=== PATIENT | female | born 1995 ===

== ENCOUNTER 2020-10-12 12:20 | Outpatient (CLI) | payer OTHER ==
[2020-10-12 12:45] VITALS: BP 106/61
--- NOTE | 2020-10-12 15:07 | Ultrasound Report ---
Limited OB ultrasound INDICATION: Amniotic fluid index measurement FINDINGS: There is a single intrauterine in a cephalic presentation. The amniotic fluid ind ex is 8.2 cm which is within the normal range. heart rate is 137 bpm. IMPRESSION: The amniotic fluid index is normal. BIOPHYSICAL PROFILE INDICATION: well-being COMPARISON: None FINDINGS: breathing movement: 2/2 movement: 2/2 posture and tone: 2/2 Qualitative amniotic fluid volume: 2/2 IMPRESSION: Total score for biophysical profile is 8/8 heart rate is 137 bpm Signer Name: Pastor Brito MD Signed: 10/12/2020 3:03 PM Workstation Name: [id number]
== END 2020-10-12 14:12 | disposition home or self-care (01) ==
LOC: TRG 12:20 → APU 12:21 → TRG 14:12
PROVIDERS: ATTEND Obstetrics & Gynecology
DX: O47.1 False labor at or after 37 completed weeks of gestation (principal); Z3A.39 39 weeks gestation of pregnancy
CPT/HCPCS: 59025; 76815; 76819

== ENCOUNTER 2020-10-18 17:42 | Inpatient (IN) | payer OTHER, SELFPAY ==
[2020-10-18] MEDS ORDERED: HYDROcodone/ACETAMINOPHEN 5-325 MG TAB PO ONE (22:18)
[2020-10-19] MEDS ORDERED: MINERAL OIL 30 ML ORAL LIQD PO PRN ×2 (01:34→22:00)
[2020-10-19] MEDS ORDERED: TERBUTALINE 1 MG/1 ML INJ SUB-Q PRN ×2 (01:34→08:59)
[2020-10-19] MEDS ORDERED: fentaNYL 100 MCG/2 ML INJ IV PRN (01:34)
[2020-10-19] MEDS ORDERED: LIDOCAINE (2%) 20 MG/1 ML VIAL 20 ML MDV INFILTRATI ONE (01:34)
[2020-10-19] MEDS ORDERED: ePHEDrine SULFATE 50 MG/1 ML INJ IV PRN (01:34)
[2020-10-19] MEDS ORDERED: LACTATED RINGERS 1,000 ML IV SCH ×2 (01:45→09:00)
[2020-10-19] MEDS ORDERED: OXYTOCIN DRIP 30 UNITS/500 ML BAG IV SCH ×3 (02:00→09:00)
[2020-10-19 02:11] LABS: Hematocrit 38.3 % (30.3-42.9); Hemoglobin 12.9 gm/dl (10.1-14.3); Mean Corpuscular HGB Conc 34 % (30-34); Mean Corpuscular Volume 93 fl (79-97); Platelet Count 170 K/mm3 (140-440); Red Blood Count 4.12 M/mm3 (3.65-5.03); Red Cell Distribution Width 15.2 % (13.2-15.2)
[2020-10-19] MEDS: BUTORPHANOL 2 MG/1 ML INJ IV PRN ×2 (02:40→06:12)
[2020-10-19] MEDS ORDERED: LIDOCAINE (2%) 20 MG/1 ML VIAL 20 ML MDV INFILTRATI NR (08:59)
[2020-10-19] MEDS ORDERED: NALOXONE 2 MG/2 ML INJ IV PRN (10:30)
[2020-10-19] MEDS ORDERED: fentaNYL-BUPIV 2 MCG/ML-0.125% 200 MCG/100 ML BAG EPIDURAL SCH (10:30)
[2020-10-19] MEDS ORDERED: NalbUPHINE 10 MG/1 ML INJ IV PRN (10:30)
[2020-10-19] MEDS ORDERED: ONDANSETRON 4 MG/2 ML INJ IV PRN (10:30)
[2020-10-19] MEDS ORDERED: diphenhydrAMINE 50 MG/ML VIAL IV PRN (10:30)
--- NOTE | 2020-10-19 11:00 | Anesthesia Consultation ---
Anesthesia Consult and Med Hx Date of service: 10/19/20 - Airway Anesthetic Teeth Evaluation: Good ROM Head & Neck: Adequate Mental/Hyoid Distance: Adequate Mallampati Class: Class II Intubation Access Assessment: Probably Good - Pulmonary Exam CTA: Yes - Cardiac Exam Cardiac Exam: RRR - Pre-Operative Health Status ASA Pre-Surgery Classification: ASA2 Proposed Anesthetic Plan: Epidural - Pulmonary Hx Smoking: No Hx Asthma: No Hx Sleep Apnea: No - Cardiovascular System Hx Hypertension: No Hx Heart Attack/AMI: No Hx Angina: No - Central Nervous System Hx Seizures: No Hx Psychiatric Problems: No - Gastrointestinal Hx Gastroesophageal Reflux Disease: No - Endocrine Hx Renal Disease: No Hx Insulin Dependent Diabetes: No Hx Non-Insulin Dependent Diabetes: No Hx Hypothyroidism: No Hx Hyperthyroidism: No - Hematic Hx Anemia: No Hx Sickle Cell Disease: No - Other Systems Hx Alcohol Use: No
--- NOTE | 2020-10-19 11:01 | Progress Note ---
Labor Epidural - Labor Epidural Start Time: 10:45 Stop Time: 11:00 Performed by:: GARTH MULLEN (Jeaneth CALERO) Procedure: Patient is requesting a laboring epidural for laboring pain. Patient IDed, H&P reviewed, all questions and concerns were answered, and consent was signed. Timeout was performed at bedside. Patient in sitting position. Sterile prep and drape was performed. 3ml of 1% lidocaine skin wheal at L[3]- L [4]. 18- gauge Touhy epidural needle was advanced to loss of resistance with air technique. Negative CSF negative blood. Epidural catheter advanced to [12] centimeters. [-] Aspiration [-] test dose. Sterile dressing applied. Patient tolerated procedure.
--- NOTE | 2020-10-19 11:27 | History and Physical Report ---
History of Present Illness Date of examination: 10/19/20 Date of admission: 10/19/20 08:59 Chief complaint: Presents for induction of labor secondary to postdates. History of present illness: Early entry to care at 7 1/7 weeks to [facility]. course c omplicated by anemia (PO iron). 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: other (infertility; treated in [place] 12/16/19) Family/Genetic History: diabetes (father) Social history: no significant social history - Obstetrical History Expected Date of Delivery: 10/13/20 Actual Gestation: 40 Week(s) 6 Day(s) : 1 Para: 0 Medications and Allergies Allergies Allergy/AdvReac Type Severity Reaction Status Date / Time No Known Allergies Allergy Verified 10/18/20 18:43 Home Medications Medication Instructions Recorded Confirmed Last Taken Type No Known Home Medications [No 10/19/20 10/19/20 Unknown History Reported Home Medications] Active Meds: Active Medications Butorphanol Tartrate (Stadol) 2 mg IV Q1H PRN PRN Reason: Labor Pain Last Admin: 10/19/20 06:12 Dose: 2 mg Documented by: Diphenhydramine HCl (Benadryl) 12.5 mg IV Q2H PRN PRN Reason: Itching Ephedrine Sulfate (Ephedrine Sulfate) 10 mg IV Q2M PRN PRN Reason: Hypotension Fentanyl (Sublimaze) 100 mcg IV Q2H PRN PRN Reason: Pain,Severe (7-10) LABOR PAIN Lactated Ringer's (Lactated Ringers) 1,000 mls @ 125 mls/hr IV DIRECT KALINA Oxytocin/Sodium Chloride (Pitocin/Ns 30 Unit/500ml) 30 units in 500 mls @ 40 mls/hr IV TITR KALINA; Protocol Fentanyl/Bupivacaine/Sodium Chlor (Fentanyl-Bupiv 2 Mcg/Ml-0.125%) 200 mcg in 100 mls @ 12 mls/hr EPIDURAL TITR KALINA; Protocol Last Admin: 10/19/20 10:58 Dose: 12 mls/hr Documented by: Mineral Oil (Mineral Oil) 30 ml PO QHS PRN PRN Reason: Constipation Nalbuphine HCl (Nalbuphine) 2.5 mg IV Q2H PRN PRN Reason: Itching Naloxone HCl (Naloxone) 0.2 mg IV Q5M PRN PRN Reason: Respiratory sedation Ondansetron HCl (Zofran) 4 mg IV Q8H PRN PRN Reason: Nausea And Vomiting Terbutaline Sulfate (Brethine) 0.25 mg SUB-Q ONCE PRN PRN Reason: Hyperstimulation/Hypertonicity Review of Systems All systems: negative - Vital Signs Vital signs: Vital Signs Pulse Pulse Ox 41 L 96 10/18/20 18:39 10/18/20 18:39 Temp Pulse Resp BP Pulse Ox 97.5 F L 100 H 18 113/56 100 10/19/20 07:17 10/19/20 11:19 10/19/20 07:17 10/19/20 11:11 10/19/20 11:19 - Physical Exam Breasts: Positive: normal Cardiovascular: Regular rate Lungs: Positive: Normal air movement Abdomen: Positive: normal appearance, soft Genitourinary (Female): Positive: normal external genitalia, normal perenium Vagina: Positive: normal moisture Uterus: Positive: enlarged Anus/Rectum: Positive: normal perianal skin Extremities: Positive: normal - Obstetrical FHR: category 1 Uterine Contraction Monitor Mode: External Cervical Dilatation: 5 (Small amount of clear fluid upon AROM at 1117) Cervical Effacement Percentage: 90 station: -1 Uterine Contraction Pattern: Irregular Uterine Tone Measurement Phase: Resting Uterine Contraction Intensity: Moderate Results Result Diagrams: 10/19/20 01:30 All other labs normal. Assessment and Plan A: IUP at 40 6/7 weeks Category I tracing Active Labor GBS negative P: Admit to L&D per routine orders AROM Continue Pitocin Augmentation
[2020-10-19] MEDS: OXYTOCIN DRIP 30 UNITS/500 ML BAG IV SCH ×6 (12:00→16:20)
[2020-10-19] MEDS ORDERED: MINERAL OIL 30 ML ORAL LIQD ONE ×3 (17:14→19:56)
[2020-10-19] MEDS ORDERED: LANOLIN/ZINC/DIMETHICONE (LANSINOH) 7 GM TP PRN (21:14)
[2020-10-19] MEDS ORDERED: HYDROcodone/ACETAMINOPHEN 5-325 MG TAB PO PRN (21:14)
--- NOTE | 2020-10-19 21:29 | Procedure Note ---
OB Delivery Note - Delivery Date of Delivery: 10/19/20 (2011) Surgeon: KEVIN GARCES Estimated blood loss: 300cc - Vaginal Delivery presentation: vertex Delivery position: OA Intrapartum events: none Delivery induction: oxytocin Delivery augmentation: rupture of membranes, pitocin Delivery monitor: external FHT, internal uterine Route of delivery: Delivery placenta: spontaneous Delivery cord: nuchal cord, 3 umbilical vessels Episiotomy: none Delivery laceration: 2nd degree (bilateral vaginal side hollins), other (labial) Delivery repair: vicryl Anesthesia: epidural Delivery comments: of a live 7'9 male infant with Apgars of 7 and 9 over second degree bilateral vaginal side wall and bilateral labial lacerations under epidural anesthesia at 2011 on 10/19/2020. Loose nuchal cord x1; easily manually reduced on the perineum prior to delivery of the anterior shoulder. Cord double clamped and cut by JOHANNY Garces; infant directly to warmer. Code pink called. Cord blood gases collected. Spontaneous delivery of a complete and intact placenta with Morse side presenting at 2018. Fundus firm and midline, located 4 below the U. Lochia is scant. Vaginal lacerations repaired with 2-[address]-1; labial lacerations repaired with 2-0 vicryl on a SH. Placenta to pathology. - Infant A at 1 minute: 7 at 5 minutes: 9 Gender: Male (7'9)
[2020-10-20] MEDS: WITCH HAZEL/ GLYCERIN PAD TP PRN ×2 (00:47→20:14)
[2020-10-20] MEDS: IBUPROFEN 600 MG TAB PO SCH ×3 (06:33→18:10)
[2020-10-20 09:46] LABS: Hematocrit 24.3 % (30.3-42.9); Hemoglobin 8.2 gm/dl (10.1-14.3)
--- NOTE | 2020-10-20 10:15 | Post Anesthesia Evaluation ---
- Post Anesthesia Evaluation Patient Participated: Yes Airway Patent: Yes Stable Respiratory Function: Yes Nausea/Vomiting: No Temp > 96.8F: Yes Pain Manageable: Yes Adequeate Hydration: Yes Anesthesia Complications: No Block Receding Appropriately: Yes Patient on Ventilator: No
[2020-10-20] MEDS: PRENATAL VIT27-FE FUMARATE-FOLIC ACID VIT TAB PO SCH (11:52)
--- NOTE | 2020-10-20 19:04 | Progress Note ---
Assessment and Plan A: S/P Anemia p: Continue monitoring Ferrous Sulfate BID D/C home tomm if stable - Patient Problems (1) (normal spontaneous vaginal delivery) Current Visit: Yes Status: Acute (2) Anemia Current Visit: Yes Status: Acute Subjective - Subjective Date of service: 10/20/20 Principal diagnosis: Patient reports: appetite normal, voiding normally, pain well controlled, ambulating normally [place]: doing well Objective - Vital Signs Latest vital signs: Vital Signs Temp Pulse Resp BP BP Pulse Ox 10/20/20 16:01 97.7 F 97 H 20 100/57 98 10/20/20 12:33 97.9 F 90 20 91/52 98 10/20/20 07:57 98.5 F 89 20 93/53 96 10/20/20 06:33 20 10/20/20 06:30 98 F 88 18 92/57 99 10/20/20 00:36 97.9 F 85 20 98/62 99 10/20/20 00:15 106 H 107/58 10/19/20 23:02 122 H 99 10/19/20 22:57 96 H 99 10/19/20 22:52 93 H 100 10/19/20 22:47 95 H 99 10/19/20 22:44 89 97/58 10/19/20 22:42 92 H 99 10/19/20 22:37 95 H 100 10/19/20 22:32 98 H 99 10/19/20 22:27 96 H 100 10/19/20 22:22 96 H 99 10/19/20 22:17 97 H 100 10/19/20 22:14 101 H 88/54 10/19/20 22:12 89 100 10/19/20 22:07 105 H 100 10/19/20 22:02 113 H 99 10/19/20 21:57 125 H 100 10/19/20 21:52 108 H 100 10/19/20 21:47 104 H 100 10/19/20 21:44 105 H 99/62 10/19/20 21:42 111 H 100 10/19/20 21:37 104 H 100 10/19/20 21:32 109 H 98 10/19/20 21:27 107 H 100 10/19/20 21:22 104 H 99 10/19/20 21:17 111 H 100 10/19/20 21:14 110 H 92/59 10/19/20 21:12 104 H 100 10/19/20 21:07 103 H 100 10/19/20 21:02 111 H 98 10/19/20 20:44 109 H 95/57 10/19/20 20:20 99.2 F 10/19/20 20:14 106 H 99/58 10/19/20 19:11 112 H 97 10/19/20 19:06 87 100 10/19/20 19:01 85 100 Intake and Output 10/20/20 10/20/20 10/20/20 06:59 14:59 22:59 Intake Total 480 240 Output Total 500 400 Balance -20 -160 Intake: Oral 240 240 Intake, Free Water 240 Output: Urine 500 400 Void 500 400 Other: Total, Intake Amount 240 120 Total, Output Amount 500 400 # Voids Void 1 1 - Exam Breasts: Present: normal Abdomen: Present: normal appearance, soft, normal bowel sounds Vulva: both: normal Uterus: Present: normal, firm, fundal height below umbilicus Extremities: Present: normal Incision: Present: normal, dry, intact, other (daniel labial lacerations) - Labs Labs: Abnormal lab results 10/19/20 10/20/20 Range/Units 21:33 09:24 Hgb 8.2 L D (10.1-14.3) gm/dl Hct 24.3 L D (30.3-42.9) % ABG pH 7.179 L (7.320-7.450) POC ABG pO2 34.6 L (83-108) mmHg ABG Sodium 132.2 L (136.0-145.0) mmol/L ABG Potassium 4.8 H (3.40-4.50) mmol/L ABG Glucose 99 H (65-95) mg/dL Arterial Blood Glucose 99 H (65-95) mg/dL Arterial Blood Ionized Calcium 5.8 H (4.6-5.3) mg/dL
--- NOTE | 2020-10-20 19:14 | Discharge Summary ---
Providers - Providers Date of Admission: 10/19/20 08:59 Date of discharge: 10/21/20 Attending physician: NATHANIEL SMITH JR, MD Primary care physician: NATHANIEL SMITH JR, MD Hospitalization Reason for admission: active labor Delivery: Episiotomy: none Laceration: vaginal side wall, 2nd degree Incision: normal, dry, intact Other procedures: none complications: none Discharge diagnosis: IUP at term delivered [place] baby: male Hospital course: Pt arrived to [facility] in labor. She had a and had no pp complications. She was d/cd home in stable condition. See H&P, delivery summary, and pp notes. Condition at discharge: Stable Disposition: DC-01 TO HOME OR SELFCARE - Discharge Diagnoses (1) (normal spontaneous vaginal delivery) Status: Acute (2) Anemia Status: Acute Plan - Discharge Medications Prescriptions: Ibuprofen [Motrin 600 MG tab] 600 mg PO Q6HR #30 tablet - Provider Discharge Summary Activity: no sex for 6 weeks, no heavy lifting 4 weeks, no strenuous exercise Diet: routine Instructions: routine Additional instructions: [] Smoking cessation referral if applicable(refer to patient education folder for contact #) [] Refer to [facility]'s [facility] Booklet Call your doctor immediately for: * Fever > 100.5 * Heavy vaginal bleeding ( >1 pad per hour) * Severe persistent headache * Shortness of breath * Reddened, hot, painful area to leg or breast * Drainage or odor from incision. * Keep incision clean and dry at all times and follow doctor's instructions regarding bathing/showering - Follow up plan Follow up: NATHANIEL SMITH JR, MD [Primary Care Provider] - 6 Weeks
[2020-10-20] MEDS ORDERED: FERROUS SULFATE 325 MG TAB PO SCH (22:00)
[2020-10-21] MEDS: IBUPROFEN 600 MG TAB PO SCH (03:17)
[2020-10-21] MEDS: PRENATAL VIT27-FE FUMARATE-FOLIC ACID VIT TAB PO SCH (10:05)
[2020-10-21 11:15] VITALS: BP 98/61
== END 2020-10-21 12:30 | disposition home or self-care (01) | DRG 807 ==
LOC: APU 17:42 → TRG 17:42 → APU 17:43 → LD 18:44 → TRG 18:44 → OBSVTOIN 10-19 08:59 → OB 10-20 00:23
PROVIDERS: ADMIT Obstetrics & Gynecology; ATTEND Obstetrics & Gynecology
PROC: 10907ZC Drainage of Amniotic Fluid, Therapeutic from Products of Conception, Via Natural or Artificial Opening (ICD-10-PCS; principal; 2020-10-19)
PROC: 10E0XZZ Delivery of Products of Conception, External Approach (ICD-10-PCS; 2020-10-19)
PROC: 0KQM0ZZ Repair Perineum Muscle, Open Approach (ICD-10-PCS; 2020-10-19)
PROC: 3E0R3BZ Introduction of Anesthetic Agent into Spinal Canal, Percutaneous Approach (ICD-10-PCS; 2020-10-19)
PROC: 00HU33Z Insertion of Infusion Device into Spinal Canal, Percutaneous Approach (ICD-10-PCS; 2020-10-19)
PROC: 4A033R1 Measurement of Arterial Saturation, Peripheral, Percutaneous Approach (ICD-10-PCS; 2020-10-19)
PROC: 0UQMXZZ Repair Vulva, External Approach (ICD-10-PCS; 2020-10-19)
DX: O48.0 Post-term pregnancy (principal); Z37.0 Single live birth; O70.0 First degree perineal laceration during delivery; O69.81X0 Labor and delivery complicated by cord around neck, without compression, not applicable or unspecified; Z20.828 Contact with and (suspected) exposure to other viral communicable diseases; Z3A.40 40 weeks gestation of pregnancy
CPT/HCPCS: 36415; 59025; 82805; 85014; 85018; 85027; 86592; 86850; 86900; 86901; 88307; G0378; J0595; J2590; J7120; U0003